=== PATIENT | female | born 1995 | race African-American/Black ===

== ENCOUNTER 2019-02-23 18:56 | Inpatient (IN) | payer OTHER ==
[2019-02-23] MEDS ORDERED: ACETAMINOPHEN 500 MG TABLET (FP) PO ONE (19:06)
--- NOTE | 2019-02-23 19:07 | PDOC ---
Rapid Medical Evaluation Time Seen by Provider: 02/23/19 19:03 Medical Evaluation: Allergies Allergy/AdvReac Type Severity Reaction Status Date / Time Sulfa (Sulfonamide Allergy Mild Hives Verified 09/22/15 14:49 Antibiotics) 02/23/19 19:05 HPI: 15 weeks gravid with Fever since last night associated with mid back pain PE: No gross deficits ORERS: UA and Cx Discharge Disposition - Diagnosis Fever - Referrals - Patient Instructions - Post Discharge Activity
[2019-02-23] MEDS ORDERED: ACETAMINOPHEN 325 MG TABLET (FP) ONE (20:15)
[2019-02-23] MEDS ORDERED: SODIUM CHLORIDE 1,000 ML IV STA (21:05)
[2019-02-23 21:19] LABS: HYALINE CASTS 18 /lpf (0-8); PH,URINE 5.5 (5.0-8.0); URINE APPEARANCE CLEAR; URINE BACTERIA 318.4 /hpf (NEGATIVE); URINE BILIRUBIN NEGATIVE (NEGATIVE); URINE COLOR YELLOW; URINE GLUCOSE (UA) NEGATIVE (NEGATIVE); URINE KETONE NEGATIVE (NEGATIVE); URINE LEUK ESTERASE 2+ (NEGATIVE); URINE NITRITE NEGATIVE (NEGATIVE); URINE PROTEIN NEGATIVE (NEGATIVE); URINE RBC 4 /hpf (0-4); URINE UROBILINOGEN 0.2 mg/dL (0.2-1.0); URINE WBC 36 /hpf (0-5)
--- NOTE | 2019-02-23 21:20 | PDOC ---
History of Present Illness <DavidnnekaAlexander - Last Filed: 02/23/19 22:09> <Ankur Holden - Last Filed: 02/24/19 00:44> - General Chief Complaint: SIRS, Suspected/Possible Stated Complaint: FEVER/PAIN Time Seen by Provider: 02/23/19 19:03 Past History - Past Medical History COPD: No - Psycho Social/Smoking Cessation Hx Smoking History: Never smoked Hx Alcohol Use: No Drug/Substance Use Hx: No Substance Use Type: None <Jose AAlexander - Last Filed: 02/23/19 22:09> <Ankur Holden - Last Filed: 02/24/19 00:44> - Past Medical History Allergies/Adverse Reactions: Allergies Allergy/AdvReac Type Severity Reaction Status Date / Time Sulfa (Sulfonamide Allergy Mild Hives Verified 02/23/19 19:08 Antibiotics) Home Medications: Ambulatory Orders Permethrin 5% Topical Cream [Elimite -] 1 applic TP ONCE #1 tube 09/22/15 *Physical Exam - Vital Signs Last Vital Signs Temp Pulse Resp BP Pulse Ox 100.9 F H 120 H 18 104/67 98 02/23/19 19:06 02/23/19 19:06 02/23/19 19:06 02/23/19 19:06 02/23/19 19:06 <Alexander Naranjo - Last Filed: 02/23/19 22:09> - Vital Signs Last Vital Signs Temp Pulse Resp BP Pulse Ox 98.3 F 80 20 98/47 L 99 02/24/19 00:00 02/24/19 00:00 02/24/19 00:00 02/24/19 00:00 02/24/19 00:00 <Ankur Holden - Last Filed: 02/24/19 00:44> ED Treatment Course - LABORATORY CBC & Chemistry Diagram: 02/23/19 21:55 02/23/19 21:55 - ADDITIONAL ORDERS Additional order review: Laboratory Results 02/23/19 21:05 Urine Color Yellow Urine Appearance Clear Urine pH 5.5 Ur Specific [place] 1.018 Urine Protein Negative Urine Glucose (UA) Negative Urine Ketones Negative Urine Blood Negative Urine Nitrite Negative Urine Bilirubin Negative Urine Urobilinogen 0.2 Ur Leukocyte Esterase 2+ H Urine WBC (Auto) 36 Urine RBC (Auto) 4 Urine Casts (Auto) 18 U Epithel Cells (Auto) 1.0 Urine Bacteria (Auto) 318.4 - Medications Given in the ED: ED Medications Discontinued Medications Generic Name Dose Route Start Last Admin Trade Name Freq PRN Reason Stop Dose Admin Acetaminophen 1,000 mg 02/23/19 19:06 02/23/19 20:19 Tylenol - PO 02/23/19 19:07 1,000 mg ONCE ONE Administration <Alexander Naranjo - Last Filed: 02/23/19 22:09> - LABORATORY CBC & Chemistry Diagram: 02/23/19 21:55 02/23/19 21:55 - ADDITIONAL ORDERS Additional order review: Laboratory Results 02/23/19 02/23/19 21:55 21:05 Sodium 135 L Potassium 3.9 Chloride 102 Carbon Dioxide 23 Anion Gap 10 BUN 7.7 Creatinine 0.6 Est GFR (CKD-EPI)AfAm 148.90 Est GFR (CKD-EPI)NonAf 128.48 Random Glucose 82 Calcium 9.6 Total Bilirubin 0.2 AST 17 ALT 19 Alkaline Phosphatase 74 Total Protein 7.7 Albumin 3.3 L Urine Color Yellow Urine Appearance Clear Urine pH 5.5 Ur Specific [place] 1.018 Urine Protein Negative Urine Glucose (UA) Negative Urine Ketones Negative Urine Blood Negative Urine Nitrite Negative Urine Bilirubin Negative Urine Urobilinogen 0.2 Ur Leukocyte Esterase 2+ H Urine WBC (Auto) 36 Urine RBC (Auto) 4 Urine Casts (Auto) 18 U Epithel Cells (Auto) 1.0 Urine Bacteria (Auto) 318.4 02/23/19 21:55 RBC 3.71 MCV 83.1 MCHC 34.7 RDW 12.7 MPV 7.2 L Neutrophils % 73.4 Lymphocytes % 14.5 Monocytes % 11.0 H Eosinophils % 0.4 Basophils % 0.7 - RADIOLOGY Radiology Studies Ordered: Category Date Time Status KIDNEY / RENAL US [US] Stat Ultrasound 02/23/19 21:04 Completed FOLLOW-UP US [US] Stat Ultrasound 02/23/19 21:04 Completed - Medications Given in the ED: ED Medications Discontinued Medications Generic Name Dose Route Start Last Admin Trade Name Freq PRN Reason Stop Dose Admin Acetaminophen 1,000 mg 02/23/19 19:06 02/23/19 20:19 Tylenol - PO 02/23/19 19:07 1,000 mg ONCE ONE Administration Sodium Chloride 1,000 mls @ 1,000 mls/hr 02/23/19 21:05 02/23/19 22:03 Normal Saline - IV 02/23/19 22:04 1,000 mls/hr ASDIR STA Administration Ceftriaxone Sodium 1,000 mg/ 50 mls @ 100 mls/hr 02/23/19 22:12 02/23/19 22: 25 Dextrose IVPB 02/23/19 22:41 100 mls/hr ONCE ONE Administration <Ankur Holden - Last Filed: 02/24/19 00:44> Medical Decision Making - Medical Decision Making 02/23/19 22:03 23 approx 15wks p/w one day of acute aching 7/10 L flank pain, fever, nausea, chills, +SIRS criteria most concerning for acute pyelonephritis. Acute kidney stone also possible. Plan: CBC CMP 1L IV NS Acetaminophen Blood culture UA Urine culture Ceftriaxone 1g after blood culture draw US Renal US Dispo: Admit 02/23/19 22:09 <Alexander Nraanjo - Last Filed: 02/23/19 22:09> Discharge <Alexander Naranjo - Last Filed: 02/23/19 22:09> - Discharge Information Problems reviewed: Yes - Admission Yes <Ankur Holden - Last Filed: 02/24/19 00:44> - Discharge Information Clinical Impression/Diagnosis: Acute pyelonephritis in second trimester, antepartum Fever Qualifiers: Fever type: unspecified Qualified Code(s): R50.9 - Fever, unspecified Condition: Fair - Follow up/Referral Referrals: Julissa Garcia MD [Primary Care Provider] - - Patient Discharge Instructions - Post Discharge Activity
[2019-02-23 22:09] LABS: BASO % 0.7 % (0-2.0); EOS % 0.4 % (0-4.5); HEMATOCRIT 30.9 % (32.4-45.2); HEMOGLOBIN 10.7 GM/dL (10.7-15.3); LYMPH % 14.5 % (8-40); MCH 28.9 pg (25.7-33.7); MCHC 34.7 g/dl (32.0-36.0); MEAN CELL VOLUME 83.1 fl (80-96); MEAN PLT VOLUME 7.2 fl (7.5-11.1); NEUT % 73.4 % (42.8-82.8); PLATELET COUNT 385 K/MM3 (134-434); RBC 3.71 M/mm3 (3.60-5.2); RDW 12.7 % (11.6-15.6); WHITE BLOOD COUNT 6.9 K/mm3 (4.0-10.0)
[2019-02-23] MEDS ORDERED: CEFTRIAXONE 1,000 MG in DEXTROSE 5%-WATER - 50 ML IVPB ONE (22:12)
--- NOTE | 2019-02-23 22:15 | PDOC ---
Documentation entered by Bennett Harper SCRIBE, acting as scribe for Ankur Holden MD. Ankur Holden MD: This documentation has been prepared by the Leroy connors Xhesika, SCRIBE, under my direction and personally reviewed by me in its entirety. I confirm that the documentation accurately reflects all work, treatment, procedures, and medical decision making performed by me. Attending Attestation - Resident Resident Name: DavidannashleyAlexander - ED Attending Attestation I have performed the following: I have examined & evaluated the patient, The case was reviewed & discussed with the resident, I agree w/resident's findings & plan, Exceptions are as noted - HPI HPI: 02/23/19 21:22 The patient is a 23 year old female, , currently 15 weeks , with no significant PMH, who presents to the emergency department for 1 day of fever and L flank pain. Patient states she endorsed similar symptoms 2 weeks ago, however, today her symptoms were associated with nausea and chills, which prompted her arrival to the ED. Pt denies vaginal bleeding/discharge. The patient denies chest pain, shortness of breath, headache and dizziness. Denies cough, nausea, vomiting, diarrhea and constipation. Denies dysuria, frequency, urgency and hematuria. Allergies: NKDA - Physicial Exam PE: 02/23/19 22:13 Patient is awake and alert, well-nourished, in mild distress; patient's tachycardic and febrile Normocephalic, atraumatic PERRLA, EOMI mm-dry cta rrr, tachycardic Abdomen soft, nondistended, gravid uterus is palpated below the umbilicus, positive left CVA tenderness to palpation - Medical Decision Making 02/23/19 22:14 Patient is a 23-year-old female, 1 para 0, at 15 weeks gestation by LMP presents with signs and symptoms of pyelonephritis with fever, tachycardia and left CVA tenderness. We'll obtain CBC/CMP/UA/urine culture/blood culture. Will hydrate. We'll administer IV antibiotics post blood culture. Will obtain renal and -related ultrasound. Will admit. 02/23/19 23:50 Patient reassessed, resting comfortably. -related ultrasound reveals an IUP at 16 weeks 5 days with FH. Renal ultrasound is within normal limit. Will admit for IV antibiotics.
[2019-02-23] MEDS ORDERED: CEFTRIAXONE 1 GM/50 ML BAG ONE (22:18)
[2019-02-23 22:45] LABS: ALBUMIN 3.3 g/dl (3.4-5.0); BILIRUBIN,TOTAL 0.2 mg/dL (0.2-1); BLOOD UREA NITROGEN 7.7 mg/dL (7-18); CALCIUM 9.6 mg/dL (8.5-10.1); CREATININE 0.6 mg/dL (0.55-1.3); POTASSIUM 3.9 mmol/L (3.5-5.1); TOT PROT 7.7 g/dl (6.4-8.2)
--- NOTE | 2019-02-24 00:57 | HP ---
Admitting History and Physical - Primary Care Physician PCP: Dr. Stewart - Admission Chief Complaint: fever, left back pain History of Present Illness: 23 year old female with no significant PMH, currently 15wks ( 1 para 0, at 15 weeks gestation by LMP) arrived to ED for one day of acute Left flank pain 7/10, fever, Nausea and chills. Patient denies vaginal pain, bleeding. Patient also denies sob/cp, dizziness, headache, vomiting, diarrhea or constipation. History Source: Patient Limitations to Obtaining History: No Limitations - Past Surgical History Additional Past Surgical History: 1 in past - Smoking History Smoking history: Never smoked Have you smoked in the past 12 months: No - Alcohol/Substance Use Hx Alcohol Use: No History of Substance Use: reports: None - Social History ADL: Independent History of Recent Travel: No Home Medications - Allergies Allergies/Adverse Reactions: Allergies Allergy/AdvReac Type Severity Reaction Status Date / Time Sulfa (Sulfonamide Allergy Mild Hives Verified 02/23/19 19:08 Antibiotics) - Home Medications Home Medications: Ambulatory Orders Permethrin 5% Topical Cream [Elimite -] 1 applic TP ONCE #1 tube 09/22/15 Family Medical History Family History: Denies Review of Systems - Review of Systems Constitutional: reports: Fever Eyes: reports: No Symptoms HENT: reports: No Symptoms Neck: reports: No Symptoms Cardiovascular: reports: No Symptoms Respiratory: reports: No Symptoms Gastrointestinal: reports: Nausea Genitourinary: reports: Flank Pain Breasts: reports: No Symptoms Reported Musculoskeletal: reports: No Symptoms Integumentary: reports: No Symptoms Neurological: reports: No Symptoms Endocrine: reports: No Symptoms Hematology/Lymphatic: reports: No Symptoms Psychiatric: reports: No Symptoms Physical Examination Vital Signs: Vital Signs Temperature 98.3 F 02/24/19 00:00 Pulse Rate 80 02/24/19 00:00 Respiratory Rate 20 02/24/19 00:00 Blood Pressure 98/47 L 02/24/19 00:00 O2 Sat by Pulse Oximetry (%) 99 02/24/19 00:00 Constitutional: Yes: No Distress, Calm Eyes: Yes: Conjunctiva Clear, EOM Intact HENT: Yes: Atraumatic, Normocephalic Neck: Yes: Supple, Trachea Midline Cardiovascular: Yes: Regular Rate and Rhythm Respiratory: Yes: Regular, CTA Bilaterally Gastrointestinal: Yes: Normal Bowel Sounds, Soft Renal/: Yes: CVA Tenderness - Left Musculoskeletal: Yes: WNL Extremities: Yes: WNL Edema: No Integumentary: Yes: WNL Neurological: Yes: Alert, Oriented Labs: CBC, BMP 02/23/19 21:55 02/23/19 21:55 Imaging - Results Ultrasound: Report Reviewed (-related ultrasound reveals an IUP at 16 weeks 5 days with FH. Renal ultrasound is within normal limit.) Other: Report Reviewed (UA: 2+ leukocytes pending UCX) Problem List - Problems (1) Acute pyelonephritis in second trimester, antepartum Code(s): O23.02 - INFECTIONS OF KIDNEY IN , SECOND TRIMESTER; N10 - ACUTE PYELONEPHRITIS Assessment/Plan 23 year old female with no significant PMH, currently 15wks ( 1 para 0, at 15 weeks gestation by LMP) arrived to ED for one day of acute Left flank pain 7/10, fever, Nausea and chills. # Acute Pyelonephritis SIRS criteria - noted with fever, tachy, + UA: 2+ leukocytes - -related ultrasound reveals an IUP at 16 weeks 5 days with FH. - Renal ultrasound is within normal limit. - ED gave 1L IV NS, Tylenol po 1000mg and 1 g ceftriaxone - follow up Blood, Urine culture, adjust medication based on sensitivity - continue with Tylenol q 8 hour PRN - follow up OBGYN, and ID in AM Visit type - Emergency Visit Emergency Visit: Yes ED Registration Date: 02/24/19 Care time: The patient presented to the Emergency Department on the above date and was hospitalized for further evaluation of their emergent condition. - New Patient This patient is new to me today: Yes Date on this admission: 02/24/19 - Critical Care Critical Care patient: No
[2019-02-24] MEDS ORDERED: ACETAMINOPHEN 325 MG TABLET (FP) PO PRN (01:07)
[2019-02-24 03:05] VITALS: BMI 25.4
[2019-02-24 07:17] LABS: HEMOGLOBIN 8.7 GM/dL (10.7-15.3); MCH 28.8 pg (25.7-33.7); MCHC 34.8 g/dl (32.0-36.0); MEAN CELL VOLUME 82.7 fl (80-96); MEAN PLT VOLUME 7.5 fl (7.5-11.1); PLATELET COUNT 312 K/MM3 (134-434); RBC 3.03 M/mm3 (3.60-5.2); RDW 12.8 % (11.6-15.6); WHITE BLOOD COUNT 5.7 K/mm3 (4.0-10.0)
[2019-02-24 07:39] LABS: BLOOD UREA NITROGEN 6.4 mg/dL (7-18); CALCIUM 8.3 mg/dL (8.5-10.1); CREATININE 0.5 mg/dL (0.55-1.3); POTASSIUM 3.8 mmol/L (3.5-5.1)
[2019-02-24] MEDS ORDERED: DEXTROSE 5%-WATER - 50 ML IVPB ONE (09:29)
[2019-02-24] MEDS ORDERED: cefTRIAXone SODIUM 1 GM VIAL ONE (09:29)
[2019-02-24] MEDS: CEFTRIAXONE 1 GM in DEXTROSE 5%-WATER - 50 ML IVPB SCH (09:35)
--- NOTE | 2019-02-24 10:05 | CON.OBG ---
Consult Consult Specialty:: [employer] Reason for Consultation:: Fever in - History of Present Illness Chief Complaint: Flank pain with fever History of Present Illness: 23 year old female with no significant PMH, currently 15wks ( 1 para 0, at 15 weeks gestation by LMP) arrived to ED for one day of acute Left flank pain 7/10, fever, Nausea and chills. Patient denies vaginal pain, bleeding. Patient also denies sob/cp, dizziness, headache, vomiting, diarrhea or constipation. OB called for consultation. I came to see patient. She's been followed for obstetrical care at my office. She admits to having fever associated with left flank pain starting yesterday. She was placed on IV antibiotic. She's lying comfortably in bed. - History Source History Provided By: Patient Limitations to Obtaining History: No Limitations - Past Medical History ...: Yes ...: 2 ...Para: 0 - Past Surgical History Past Surgical History: Yes: None - Alcohol/Substance Use Hx Alcohol Use: No History of Substance Use: reports: None - Smoking History Smoking history: Never smoked Have you smoked in the past 12 months: No - Social History ADL: Independent History of Recent Travel: No Home Medications - Allergies Allergies/Adverse Reactions: Allergies Allergy/AdvReac Type Severity Reaction Status Date / Time Sulfa (Sulfonamide Allergy Mild Hives Verified 02/23/19 19:08 Antibiotics) - Home Medications Home Medications: Ambulatory Orders Permethrin 5% Topical Cream [Elimite -] 1 applic TP ONCE #1 tube 09/22/15 Ferrous Sulfate [Iron] 325 mg PO BID 02/24/19 Family Medical History Family History: Unremarkable Review of Systems - Review of Systems Constitutional: reports: No Symptoms Eyes: reports: No Symptoms HENT: reports: No Symptoms Neck: reports: No Symptoms Cardiovascular: reports: No Symptoms Respiratory: reports: No Symptoms Gastrointestinal: denies: Abdominal Pain Genitourinary: reports: Flank Pain. denies: Vaginal Bleeding Breasts: reports: No Symptoms Reported Musculoskeletal: reports: No Symptoms Integumentary: reports: No Symptoms Psychiatric: reports: No Symptoms Pain Intensity: 5 Physical Exam-[employer] Vital Signs: Vital Signs Temperature 98.2 F 02/24/19 02:50 Pulse Rate 91 H 02/24/19 02:50 Respiratory Rate 18 02/24/19 02:50 Blood Pressure 109/60 02/24/19 02:50 O2 Sat by Pulse Oximetry (%) 98 02/24/19 02:50 Constitutional: No: No Distress Eyes: Yes: Conjunctiva Clear HENT: Yes: Atraumatic Neck: Yes: Supple Cardiovascular: Yes: Regular Rate and Rhythm Respiratory: Yes: Regular Gastrointestinal: Yes: Normal Bowel Sounds. No: Tenderness, Epigastrium, Vomiting Pelvis: Yes: WNL External Genitalia: Yes: Normal Vaginal Exam: No: Bleeding Uterus: Yes: Other (Gravid) Breast(s): Yes: WNL Musculoskeletal: Yes: WNL Extremities: Yes: WNL Integumentary: Yes: WNL Neurological: Yes: Alert, Oriented ...Motor Strength: WNL Psychiatric: Yes: Alert, Oriented Labs: CBC, BMP 02/24/19 06:20 02/24/19 06:20 Problem List - Problems (1) 15 weeks gestation of Code(s): Z3A.15 - 15 WEEKS GESTATION OF Assessment/Plan 15 weeks gestation Acute pyelonephritis Continue IV antibiotic for 48 hours Patient may be discharge home with PO Keflex for 14 days. F/U with OB ( Dr. Hernandez ) as scheduled
--- NOTE | 2019-02-24 11:14 | PN ---
Progress Note (short form) - Note Progress Note: has pain in left back no burning in urine has suprapubic pain , left inguinal pain Vital Signs - 24 hr 02/23/19 02/23/19 02/24/19 19:06 22:26 00:00 Temperature 100.9 F H 98.3 F Pulse Rate 120 H Pulse Rate [ 80 Left Radial] Respiratory 18 20 Rate Blood Pressure 104/67 Blood Pressure 98/47 L [Left Arm] O2 Sat by Pulse 98 99 99 Oximetry (%) 02/24/19 02/24/19 02/24/19 02:01 02:50 09:00 Temperature 98.1 F 98.2 F 98.0 F Pulse Rate 91 H 92 H Pulse Rate [ 92 H Left Radial] Respiratory 20 18 20 Rate Blood Pressure 109/60 98/58 L Blood Pressure 100/53 L [Left Arm] O2 Sat by Pulse 98 98 94 L Oximetry (%) Current Medications Generic Name Dose Route Start Last Admin Trade Name Freq PRN Reason Stop Dose Admin Acetaminophen 650 mg 02/24/19 01:07 Tylenol - PO Q8H PRN PAIN OR FEVER Ceftriaxone Sodium 1 gm/ 50 mls @ 100 mls/hr 02/24/19 10:00 02/24/19 09:35 Dextrose IVPB 03/02/19 23:59 100 mls/hr DAILY [facility] Administration Multivitamins/Minerals 1 each 02/25/19 10:00 Theragran-M PO DAILY [facility] Laboratory Results - last 24 hr 02/23/19 02/23/19 02/23/19 21:05 21:55 21:55 WBC 6.9 RBC 3.71 Hgb 10.7 Hct 30.9 L MCV 83.1 MCH 28.9 MCHC 34.7 RDW 12.7 Plt Count 385 MPV 7.2 L Absolute Neuts (auto) 5.1 Neutrophils % 73.4 Lymphocytes % 14.5 Monocytes % 11.0 H Eosinophils % 0.4 Basophils % 0.7 Nucleated RBC % 0 Sodium 135 L Potassium 3.9 Chloride 102 Carbon Dioxide 23 Anion Gap 10 BUN 7.7 Creatinine 0.6 Est GFR (CKD-EPI)AfAm 148.90 Est GFR (CKD-EPI)NonAf 128.48 Random Glucose 82 Calcium 9.6 Total Bilirubin 0.2 AST 17 ALT 19 Alkaline Phosphatase 74 Total Protein 7.7 Albumin 3.3 L Urine Color Yellow Urine Appearance Clear Urine pH 5.5 Ur Specific [place] 1.018 Urine Protein Negative Urine Glucose (UA) Negative Urine Ketones Negative Urine Blood Negative Urine Nitrite Negative Urine Bilirubin Negative Urine Urobilinogen 0.2 Ur Leukocyte Esterase 2+ H Urine WBC (Auto) 36 Urine RBC (Auto) 4 Urine Casts (Auto) 18 U Epithel Cells (Auto) 1.0 Urine Bacteria (Auto) 318.4 02/24/19 02/24/19 06:20 06:20 WBC 5.7 RBC 3.03 L Hgb 8.7 L Hct 25.0 L D MCV 82.7 MCH 28.8 MCHC 34.8 RDW 12.8 Plt Count 312 MPV 7.5 Absolute Neuts (auto) Neutrophils % Lymphocytes % Monocytes % Eosinophils % Basophils % Nucleated RBC % Sodium 136 Potassium 3.8 Chloride 107 Carbon Dioxide 22 Anion Gap 8 BUN 6.4 L Creatinine 0.5 L Est GFR (CKD-EPI)AfAm 158.11 Est GFR (CKD-EPI)NonAf 136.42 Random Glucose 77 Calcium 8.3 L Total Bilirubin AST ALT Alkaline Phosphatase Total Protein Albumin Urine Color Urine Appearance Urine pH Ur Specific [place] Urine Protein Urine Glucose (UA) Urine Ketones Urine Blood Urine Nitrite Urine Bilirubin Urine Urobilinogen Ur Leukocyte Esterase Urine WBC (Auto) Urine RBC (Auto) Urine Casts (Auto) U Epithel Cells (Auto) Urine Bacteria (Auto) S1 S2 RRR Lungs clear Left flank tenderness+ suprapubic tender+,left inguinal tender+ no edema PLAN IV fluids IV Ceftriaxone Cultures pending encourage po liquids Tylenol prn ID eval and OBGYN eval Problem List - Problems (1) Acute pyelonephritis in second trimester, antepartum Code(s): O23.02 - INFECTIONS OF KIDNEY IN , SECOND TRIMESTER; N10 - ACUTE PYELONEPHRITIS (2) Fever Code(s): R50.9 - FEVER, UNSPECIFIED Qualifiers: Fever type: unspecified Qualified Code(s): R50.9 - Fever, unspecified
--- NOTE | 2019-02-24 12:14 | CON.ID ---
Consult - History of Present Illness History of Present Illness: 23 y.o. female with no significant PMH currently 15 wks presents with c /o fever and Lt flank pain x 1 day associated with nausea and chills. States she had a nonspecific fever 2 wks ago and last saw her [employer] 3 days ago and was told she might have a UTI but does not know results of testing. She denies dysuria but states Lt flank pain extends to Lt lower abd region. Denies vomiting /diarrhea/abd pain, SOB/cough, CP or any other specific complaints. In the ER noted to have temp 100.9, tachycardic with U/A suggestive of UTI. Renal sonogram without specific findings. Currently pt is alert, without distress, afebrile. States pain in Lt flank with movement and with deep inhalation (5/10 intensity). She has no other complaints. 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 LENS BLOCKER: No: Alzheimer's, CVA, Dementia, Migraine, Multiple Sclerosis, Peripheral Neuropathy, Parkinson's, Seizure, Syncope, TIA, Vertigo, Other Cardio/Vascular: No: AFIB, Aneurysm, Aortic Insufficiency, Aortic Stenosis, CAD , CHF, Deep Vein Thrombosis, HTN, Hyperlipdemia, IA, Mitral Insufficiency, Mitral Stenosis, Murmur, Pulmonary Hypertension, Other Pulmonary: No: Asthma, Bronchitis, Cancer, COPD, O2 Dependent, Pneumonia, Previously Intubated, Pulmonary Embolus, Pulmonary Fibrosis, Sleep Apnea, Other Gastrointestinal: No: Ascites, Cancer, Constipation, Crohn's Disease, Diverticulitis, Diverticulosis, Esophageal Varices, Gastritis, GERD, GI Bleed, Hemorrhoids, Hiatal Hernia, Inflamatory Bowel Disease, Irritable Bowel Disease, Pancreatitis, Peptic Ulcer Disease, Ulcerative Colitis, Other Hepatobiliary: No: Cirrhosis, Cholelithiasis, Cholecystitis, Choledocholithiasis , Hepatitis A, Hepatitis B, Hepatitis C, Other Renal/: No: Renal Failure, Renal Inusuff, BPH, Cancer, Hematuria, Hemodialysis , Neurogenic Bladder, Renal Calculi, UTI, Other Reproductive: No: Ectopic , Endometriosis, Fibroids, PID, Polycystic Ovary Syndrome, Postmenopausal, Other ...: Yes Heme/Onc: Yes: Anemia Infectious Disease: No: AIDS, C-Diff, Herpes Zoster, HIV, MRSA, STD's, Tuberculosis, VREF, Other Psych: No: Addictions, Anxiety, Bipolar, Depression, Panic, Psychosis, Schizophrenia, Other Musculoskeletal: No: Bursitis, Chronic low back pain, Hemiparesis, Hemiplegia, Osteoarthritis, Paraplegia, Other Rheumatology: No: Fibromyalgia, Gout, Lupus, Rheumatoid Arthritis, Sarcoidosis, Vasculitis, Other ENT: No: Allergic Rhinitis, Sinusitis, Other Endocrine: No: Rj's Disease, [place]'s Disease, Diabetes Insipidus, Diabetes Mellitus, Hyperparathyroidism, Hyperthyroidism, Hypothyroidism, Osteopenia, SIADH, Other Dermatology: No: Basal Cell, Cellulitis, Eczema, Melanoma, Psoriasis, Squamous Cell, Other - Past Surgical History Past Surgical History: Yes: None - Alcohol/Substance Use Hx Alcohol Use: No History of Substance Use: reports: None - Smoking History Smoking history: Never smoked Have you smoked in the past 12 months: No - Social History ADL: Independent History of Recent Travel: No Home Medications - Allergies Allergies/Adverse Reactions: Allergies Allergy/AdvReac Type Severity Reaction Status Date / Time Sulfa (Sulfonamide Allergy Mild Hives Verified 02/23/19 19:08 Antibiotics) - Home Medications Home Medications: Ambulatory Orders Permethrin 5% Topical Cream [Elimite -] 1 applic TP ONCE #1 tube 09/22/15 Ferrous Sulfate [Iron] 325 mg PO BID 02/24/19 Review of Systems - Review of Systems Constitutional: reports: No Symptoms Eyes: reports: No Symptoms HENT: reports: No Symptoms Neck: reports: No Symptoms Cardiovascular: reports: No Symptoms Respiratory: reports: No Symptoms Gastrointestinal: reports: No Symptoms Genitourinary: reports: Flank Pain Breasts: reports: No Symptoms Reported Musculoskeletal: reports: No Symptoms Integumentary: reports: No Symptoms Neurological: reports: No Symptoms Endocrine: reports: No Symptoms Hematology/Lymphatic: reports: No Symptoms Psychiatric: reports: No Symptoms Physical Exam Vital Signs: Vital Signs Temperature 98.0 F 02/24/19 09:00 Pulse Rate 92 H 02/24/19 09:00 Respiratory Rate 20 02/24/19 09:00 Blood Pressure 98/58 L 02/24/19 09:00 O2 Sat by Pulse Oximetry (%) 94 L 02/24/19 09:00 Constitutional: Yes: No Distress, Calm Eyes: Yes: Conjunctiva Clear HENT: Yes: Atraumatic Neck: Yes: Supple Cardiovascular: Yes: Tachycardia Respiratory: Yes: CTA Bilaterally Gastrointestinal: Yes: Normal Bowel Sounds, Soft Renal/: Yes: CVA Tenderness - Left (mild, extending to front of left lower abd ) Musculoskeletal: Yes: WNL Extremities: Yes: WNL Edema: No Integumentary: Yes: WNL Neurological: Yes: Alert, Oriented Psychiatric: Yes: Alert Labs: CBC, BMP 02/24/19 06:20 02/24/19 06:20 Laboratory Tests 02/23/19 02/23/19 02/23/19 21:05 21:55 21:55 WBC 6.9 RBC 3.71 Hgb 10.7 Hct 30.9 L MCV 83.1 MCH 28.9 MCHC 34.7 RDW 12.7 Plt Count 385 MPV 7.2 L Absolute Neuts (auto) 5.1 Neutrophils % 73.4 Lymphocytes % 14.5 Monocytes % 11.0 H Eosinophils % 0.4 Basophils % 0.7 Nucleated RBC % 0 Sodium 135 L Potassium 3.9 Chloride 102 Carbon Dioxide 23 Anion Gap 10 BUN 7.7 Creatinine 0.6 Est GFR (CKD-EPI)AfAm 148.90 Est GFR (CKD-EPI)NonAf 128.48 Random Glucose 82 Calcium 9.6 Total Bilirubin 0.2 AST 17 ALT 19 Alkaline Phosphatase 74 Total Protein 7.7 Albumin 3.3 L Urine Color Yellow Urine Appearance Clear Urine pH 5.[address] [place] 1.018 Urine Protein Negative Urine Glucose (UA) Negative Urine Ketones Negative Urine Blood Negative Urine Nitrite Negative Urine Bilirubin Negative Urine Urobilinogen 0.2 Ur Leukocyte Esterase 2+ H Urine WBC (Auto) 36 Urine RBC (Auto) 4 Urine Casts (Auto) 18 U Epithel Cells (Auto) 1.0 Urine Bacteria (Auto) 318.4 02/24/19 02/24/19 06:20 06:20 WBC 5.7 RBC 3.03 L Hgb 8.7 L Hct 25.0 L D MCV 82.7 MCH 28.8 MCHC 34.8 RDW 12.8 Plt Count 312 MPV 7.5 Absolute Neuts (auto) Neutrophils % Lymphocytes % Monocytes % Eosinophils % Basophils % Nucleated RBC % Sodium 136 Potassium 3.8 Chloride 107 Carbon Dioxide 22 Anion Gap 8 BUN 6.4 L Creatinine 0.5 L Est GFR (CKD-EPI)AfAm 158.11 Est GFR (CKD-EPI)NonAf 136.42 Random Glucose 77 Calcium 8.3 L Total Bilirubin AST ALT Alkaline Phosphatase Total Protein Albumin Urine Color Urine Appearance Urine pH Ur Specific [place] Urine Protein Urine Glucose (UA) Urine Ketones Urine Blood Urine Nitrite Urine Bilirubin Urine Urobilinogen Ur Leukocyte Esterase Urine WBC (Auto) Urine RBC (Auto) Urine Casts (Auto) U Epithel Cells (Auto) Urine Bacteria (Auto) Imaging - Results Ultrasound: Report Reviewed Problem List - Problems (1) Acute pyelonephritis in second trimester, antepartum Code(s): O23.02 - INFECTIONS OF KIDNEY IN , SECOND TRIMESTER; N10 - ACUTE PYELONEPHRITIS (2) Fever Code(s): R50.9 - FEVER, UNSPECIFIED Qualifiers: Fever type: unspecified Qualified Code(s): R50.9 - Fever, unspecified Assessment/Plan 23 y.o. female with no significant PMH currently 15 wks presents with c /o fever and Lt flank pain x 1 day associated with nausea and chills. Fever/ tachycardia in ER. Acute Pyelonephritis 2nd trimester -- continue Ceftriaxone empirically for now -- follow up culture results -- monitor vitals -- Pt is currently stable Will follow up Thank you
[2019-02-24] MEDS ORDERED: ACETAMINOPHEN 1000 MG/100 ML VIAL (NON FORMULARY) IVPB PRN (12:35)
[2019-02-24] MEDS ORDERED: SODIUM CHLORIDE 1,000 ML IV SCH (12:45)
[2019-02-24] MEDS: FERROUS SO4 325 MG TABLET (FP) PO SCH (13:52)
[2019-02-24] MEDS: PRENATAL VITAMINS W/ FOLIC ACID TABLET (FP) PO SCH (15:33)
[2019-02-25 09:16] LABS: HEMATOCRIT 25.9 % (32.4-45.2); MCH 28.5 pg (25.7-33.7); MCHC 34.7 g/dl (32.0-36.0); MEAN CELL VOLUME 82.1 fl (80-96); MEAN PLT VOLUME 7.3 fl (7.5-11.1); PLATELET COUNT 329 K/MM3 (134-434); RBC 3.15 M/mm3 (3.60-5.2); RDW 12.3 % (11.6-15.6); WHITE BLOOD COUNT 4.9 K/mm3 (4.0-10.0)
[2019-02-25] MEDS ORDERED: DEXTROSE 5%-WATER - 50 ML IVPB ONE (09:37)
[2019-02-25] MEDS ORDERED: cefTRIAXone SODIUM 1 GM VIAL ONE (09:37)
[2019-02-25 09:48] LABS: BLOOD UREA NITROGEN 8.1 mg/dL (7-18); CALCIUM 8.6 mg/dL (8.5-10.1); CREATININE 0.4 mg/dL (0.55-1.3)
[2019-02-25] MEDS ORDERED: MULTIVITAMINS THER W-MINERALS COMBO TABLET (FP) PO SCH (10:00)
[2019-02-25] MEDS: CEFTRIAXONE 1 GM in DEXTROSE 5%-WATER - 50 ML IVPB SCH (10:14)
[2019-02-25] MEDS: FERROUS SO4 325 MG TABLET (FP) PO SCH (10:14)
[2019-02-25] MEDS: PRENATAL VITAMINS W/ FOLIC ACID TABLET (FP) PO SCH (10:14)
--- NOTE | 2019-02-25 10:56 | PN ---
Progress Note, Physician History of Present Illness: stable afebrile still with minor flank pain - Current Medication List Current Medications: Active Medications Acetaminophen (Tylenol -) 650 mg PO Q8H PRN PRN Reason: PAIN OR FEVER Last Admin: 02/24/19 21:45 Dose: 650 mg Acetaminophen (Ofirmev Injection -) 1,000 mg IVPB Q6H PRN PRN Reason: MODERATE PAIN Ferrous Sulfate (Feosol -) 325 mg PO DAILY [facility] Last Admin: 02/25/19 10:14 Dose: 325 mg Ceftriaxone Sodium 1 gm/ (Dextrose) 50 mls @ 100 mls/hr IVPB DAILY [facility] Stop: 03/02/19 23:59 Last Admin: 02/25/19 10:14 Dose: 100 mls/hr Multivit/Folic Acid/Iron ( Vitamins (Sjr) -) 1 tab PO DAILY [facility] Last Admin: 02/25/19 10:14 Dose: 1 tab - Objective Vital Signs: Vital Signs Temperature 98.0 F 02/25/19 10:12 Pulse Rate 77 02/25/19 10:12 Respiratory Rate 17 02/25/19 10:12 Blood Pressure 95/49 L 02/25/19 10:12 O2 Sat by Pulse Oximetry (%) 94 L 02/24/19 21:00 Constitutional: Yes: No Distress, Calm Cardiovascular: Yes: Regular Rate and Rhythm Respiratory: Yes: Regular, CTA Bilaterally Gastrointestinal: Yes: Normal Bowel Sounds, Soft Musculoskeletal: Yes: WNL Extremities: Yes: WNL Neurological: Yes: Alert, Oriented Psychiatric: Yes: Alert, Oriented Labs: CBC, BMP 02/25/19 08:35 02/25/19 08:35 Assessment/Plan - Problems (1) Acute pyelonephritis in second trimester, antepartum Code(s): O23.02 - INFECTIONS OF KIDNEY IN , SECOND TRIMESTER; N10 - ACUTE PYELONEPHRITIS (2) Fever Code(s): R50.9 - FEVER, UNSPECIFIED Qualifiers: Fever type: unspecified Qualified Code(s): R50.9 - Fever, unspecified uti Assessment/Plan 23 y.o. female with no significant PMH currently 15 wks presents with c /o fever and Lt flank pain x 1 day associated with nausea and chills. Fever/ tachycardia in ER. Acute Pyelonephritis 2nd trimester uti continue abx await for identification of the bacteria rest as per the team
--- NOTE | 2019-02-25 12:30 | PN ---
Progress Note (short form) - Note Progress Note: pt seen/examined chart reviewed Pt of Dr. Julissa Garcia awake/ comfortable except mild flank pain Vital Signs Temp 98.0 F 02/25/19 10:12 Pulse 77 02/25/19 10:12 Resp 17 02/25/19 10:12 BP 95/49 L 02/25/19 10:12 Pulse Ox 94 L 02/24/19 21:00 Intake & Output 02/24/19 02/25/19 02/25/19 23:59 11:59 23:59 Intake Total 400 150 Output Total 0 Balance 400 150 Weight 155 lb 6.4 oz Intake: IV 0 saline lock 0 Oral 400 150 Output: Emesis 0 Other: Voiding Method Toilet Toilet Bowel Movement No No Weight Measurement Method Built in [facility] Active Medications Acetaminophen (Tylenol -) 650 mg PO Q8H PRN PRN Reason: PAIN OR FEVER Last Admin: 02/24/19 21:45 Dose: 650 mg Acetaminophen (Ofirmev Injection -) 1,000 mg IVPB Q6H PRN PRN Reason: MODERATE PAIN Ferrous Sulfate (Feosol -) 325 mg PO DAILY [facility] Last Admin: 02/25/19 10:14 Dose: 325 mg Ceftriaxone Sodium 1 gm/ (Dextrose) 50 mls @ 100 mls/hr IVPB DAILY [facility] Stop: 03/02/19 23:59 Last Admin: 02/25/19 10:14 Dose: 100 mls/hr Multivit/Folic Acid/Iron ( Vitamins (Sjr) -) 1 tab PO DAILY [facility] Last Admin: 02/25/19 10:14 Dose: 1 tab CBC, BMP 02/25/19 08:35 02/25/19 08:35 u/s kidneys - reviewed Microbiology 02/23/19 21:05 Urine Culture - Preliminary Urine - Urine Clean Catch Lactose Fermenting Neg Bacilli 02/23/19 21:55 Blood Culture - Preliminary Blood - Peripheral Venous NO GROWTH OBTAINED AFTER 24 HOURS, INCUBATION TO CONTINUE FOR 4 DAYS. 02/23/19 21:55 Blood Culture - Preliminary Blood - Peripheral Venous NO GROWTH OBTAINED AFTER 24 HOURS, INCUBATION TO CONTINUE FOR 4 DAYS. Physical Exam S1 S2 RRR Lungs clear Left flank tenderness+ suprapubic tender+-- Mild no edema PLAN IV fluids IV Ceftriaxone Cultures pending encourage po liquids Tylenol prn D/w I/d also today as well as rn will follow Problem List - Problems (1) Acute pyelonephritis in second trimester, antepartum Code(s): O23.02 - INFECTIONS OF KIDNEY IN , SECOND TRIMESTER; N10 - ACUTE PYELONEPHRITIS (2) Fever Code(s): R50.9 - FEVER, UNSPECIFIED Qualifiers: Fever type: unspecified Qualified Code(s): R50.9 - Fever, unspecified
[2019-02-26] MEDS ORDERED: DEXTROSE 5%-WATER - 50 ML IVPB ONE (09:03)
[2019-02-26] MEDS ORDERED: cefTRIAXone SODIUM 1 GM VIAL ONE (09:03)
[2019-02-26] MEDS: PRENATAL VITAMINS W/ FOLIC ACID TABLET (FP) PO SCH (09:06)
[2019-02-26] MEDS: CEFTRIAXONE 1 GM in DEXTROSE 5%-WATER - 50 ML IVPB SCH (09:06)
[2019-02-26] MEDS: FERROUS SO4 325 MG TABLET (FP) PO SCH (09:06)
--- NOTE | 2019-02-26 13:36 | PN ---
Progress Note (short form) - Note Progress Note: has pain in left back no burning in urine dull pain in left side of back has hard stools but she had a bm yesterday Vital Signs - 24 hr 02/25/19 02/25/19 02/25/19 14:53 20:00 21:00 Temperature 97.4 F L 97.6 F Pulse Rate 73 76 Respiratory 18 19 20 Rate Blood Pressure 107/58 L 99/58 L O2 Sat by Pulse 100 Oximetry (%) 02/26/19 02/26/19 02/26/19 07:00 07:39 08:51 Temperature 97.8 F 97.8 F Pulse Rate 73 73 Respiratory 20 14 Rate Blood Pressure 102/47 L 100/60 O2 Sat by Pulse 100 Oximetry (%) Current Medications Generic Name Dose Route Start Last Admin Trade Name Freq PRN Reason Stop Dose Admin Acetaminophen 650 mg 02/24/19 01:07 02/24/19 21:45 Tylenol - PO 650 mg Q8H PRN Administration PAIN OR FEVER Acetaminophen 1,000 mg 02/24/19 12:35 Ofirmev Injection - IVPB Q6H PRN MODERATE PAIN Ferrous Sulfate 325 mg 02/24/19 12:45 02/26/19 09:06 Feosol - PO 325 mg DAILY [facility] Administration Ceftriaxone Sodium 1 gm/ 50 mls @ 100 mls/hr 02/24/19 10:00 02/26/19 09:06 Dextrose IVPB 03/02/19 23:59 100 mls/hr DAILY [facility] Administration Multivit/Folic Acid/Iron 1 tab 02/24/19 12:45 02/26/19 09:06 Vitamins (Sjr) - PO 1 tab DAILY [facility] Administration Microbiology 02/23/19 21:05 Urine Culture - Final Urine - Urine Clean Catch Escherichia Coli 02/23/19 21:55 Blood Culture - Preliminary Blood - Peripheral Venous NO GROWTH OBTAINED AFTER 48 HOURS, INCUBATION TO CONTINUE FOR 3 DAYS. 02/23/19 21:55 Blood Culture - Preliminary Blood - Peripheral Venous NO GROWTH OBTAINED AFTER 48 HOURS, INCUBATION TO CONTINUE FOR 3 DAYS. S1 S2 RRR Lungs clear Left flank tenderness+ suprapubic tender+,left inguinal tender+ no edema PLAN IV fluids dc IV Ceftriaxone Cultures noted encourage po liquids Tylenol prn ID follow up with regards to antibiotics on discharge Problem List - Problems (1) Acute pyelonephritis in second trimester, antepartum Code(s): O23.02 - INFECTIONS OF KIDNEY IN , SECOND TRIMESTER; N10 - ACUTE PYELONEPHRITIS (2) Fever Code(s): R50.9 - FEVER, UNSPECIFIED Qualifiers: Fever type: unspecified Qualified Code(s): R50.9 - Fever, unspecified
--- NOTE | 2019-02-26 18:20 | PN ---
Progress Note, Physician History of Present Illness: Pt is alert and afebrile. Still has some mild pain in Lt flank but decreasing. Fever resolved. No other complaints. - Current Medication List Current Medications: Active Medications Acetaminophen (Tylenol -) 650 mg PO Q8H PRN PRN Reason: PAIN OR FEVER Last Admin: 02/24/19 21:45 Dose: 650 mg Acetaminophen (Ofirmev Injection -) 1,000 mg IVPB Q6H PRN PRN Reason: MODERATE PAIN Ferrous Sulfate (Feosol -) 325 mg PO DAILY [facility] Last Admin: 02/26/19 09:06 Dose: 325 mg Ceftriaxone Sodium 1 gm/ (Dextrose) 50 mls @ 100 mls/hr IVPB DAILY [facility] Stop: 03/02/19 23:59 Last Admin: 02/26/19 09:06 Dose: 100 mls/hr Multivit/Folic Acid/Iron ( Vitamins (Sjr) -) 1 tab PO DAILY [facility] Last Admin: 02/26/19 09:06 Dose: 1 tab - Objective Vital Signs: Vital Signs Temperature 97.8 F 02/26/19 13:48 Pulse Rate 85 02/26/19 13:48 Respiratory Rate 14 02/26/19 07:39 Blood Pressure 111/55 L 02/26/19 13:48 O2 Sat by Pulse Oximetry (%) 100 02/26/19 08:51 Constitutional: Yes: No Distress, Calm Cardiovascular: Yes: Regular Rate and Rhythm Respiratory: Yes: Regular Gastrointestinal: Yes: Normal Bowel Sounds, Soft Genitourinary: Yes: WNL, Musculoskeletal: Yes: WNL Extremities: Yes: WNL Integumentary: Yes: WNL Neurological: Yes: Alert, Oriented Labs: CBC, BMP 02/25/19 08:35 02/25/19 08:35 Microbiology 02/23/19 21:05 Urine - Urine Clean Catch Urine Culture - Final Escherichia Coli 02/23/19 21:55 Blood - Peripheral Venous Blood Culture - Preliminary NO GROWTH OBTAINED AFTER 48 HOURS, INCUBATION TO CONTINUE FOR 3 DAYS. 02/23/19 21:55 Blood - Peripheral Venous Blood Culture - Preliminary NO GROWTH OBTAINED AFTER 48 HOURS, INCUBATION TO CONTINUE FOR 3 DAYS. Problem List - Problems (1) Acute pyelonephritis in second trimester, antepartum Code(s): O23.02 - INFECTIONS OF KIDNEY IN , SECOND TRIMESTER; N10 - ACUTE PYELONEPHRITIS (2) Fever Code(s): R50.9 - FEVER, UNSPECIFIED Qualifiers: Fever type: unspecified Qualified Code(s): R50.9 - Fever, unspecified Assessment/Plan 23 y.o. female with no significant PMH currently 15 wks presents with c /o fever and Lt flank pain x 1 day associated with nausea and chills. Fever/ tachycardia in ER. E. coli UTI / Acute Pyelonephritis 2nd trimester -- Pt is afebrile, with decreasing flank pain -- upon discharge may switch to keflex to complete total 14 days antibiotic course -- monitor vitals -- Pt is currently stable
[2019-02-27] MEDS ORDERED: cefTRIAXone SODIUM 1 GM VIAL ONE (09:24)
[2019-02-27] MEDS ORDERED: DEXTROSE 5%-WATER - 50 ML IVPB ONE (09:24)
[2019-02-27] MEDS: FERROUS SO4 325 MG TABLET (FP) PO SCH (09:43)
[2019-02-27] MEDS: CEFTRIAXONE 1 GM in DEXTROSE 5%-WATER - 50 ML IVPB SCH (09:43)
[2019-02-27] MEDS: PRENATAL VITAMINS W/ FOLIC ACID TABLET (FP) PO SCH (09:43)
--- NOTE | 2019-02-27 10:39 | PN ---
Progress Note (short form) - Note Progress Note: has pain in left back no burning in urine dull pain in left side of back Vital Signs - 24 hr 02/26/19 02/26/19 02/27/19 20:56 21:00 06:45 Temperature 98 F 98.3 F Pulse Rate 70 71 Respiratory 20 20 17 Rate Blood Pressure 120/80 94/51 L O2 Sat by Pulse 100 Oximetry (%) 02/27/19 02/27/19 07:57 08:40 Temperature 98.0 F Pulse Rate 80 Respiratory 16 Rate Blood Pressure 100/60 O2 Sat by Pulse 100 Oximetry (%) Current Medications Generic Name Dose Route Start Last Admin Trade Name Freq PRN Reason Stop Dose Admin Acetaminophen 650 mg 02/24/19 01:07 02/24/19 21:45 Tylenol - PO 650 mg Q8H PRN Administration PAIN OR FEVER Acetaminophen 1,000 mg 02/24/19 12:35 Ofirmev Injection - IVPB Q6H PRN MODERATE PAIN Ferrous Sulfate 325 mg 02/24/19 12:45 02/27/19 09:43 Feosol - PO 325 mg DAILY [facility] Administration Ceftriaxone Sodium 1 gm/ 50 mls @ 100 mls/hr 02/24/19 10:00 02/27/19 09:43 Dextrose IVPB 03/02/19 23:59 100 mls/hr DAILY [facility] Administration Multivit/Folic Acid/Iron 1 tab 02/24/19 12:45 02/27/19 09:43 Vitamins (Sjr) - PO 1 tab DAILY [facility] Administration S1 S2 RRR Lungs clear Left flank tenderness+ less no suprapubic tenderness ,left inguinal tender+ no edema PLAN IV fluids dc IV Ceftriaxone Cultures noted encourage po liquids Tylenol prn renal and bladder sono ordered if unremarkable, may dc home in AM on po Keflex Problem List - Problems (1) Acute pyelonephritis in second trimester, antepartum Code(s): O23.02 - INFECTIONS OF KIDNEY IN , SECOND TRIMESTER; N10 - ACUTE PYELONEPHRITIS (2) Fever Code(s): R50.9 - FEVER, UNSPECIFIED Qualifiers: Fever type: unspecified Qualified Code(s): R50.9 - Fever, unspecified
--- NOTE | 2019-02-27 16:39 | PN ---
Progress Note, Physician History of Present Illness: Pt feeling well. Denies dysuria. Lt flank pain resolved. Some discomfort in LLQ but no other specific complaints. Bladder sonogram without acute findings. Tolerating antibiotics. - Current Medication List Current Medications: Active Medications Acetaminophen (Tylenol -) 650 mg PO Q8H PRN PRN Reason: PAIN OR FEVER Last Admin: 02/24/19 21:45 Dose: 650 mg Acetaminophen (Ofirmev Injection -) 1,000 mg IVPB Q6H PRN PRN Reason: MODERATE PAIN Ferrous Sulfate (Feosol -) 325 mg PO DAILY [facility] Last Admin: 02/27/19 09:43 Dose: 325 mg Ceftriaxone Sodium 1 gm/ (Dextrose) 50 mls @ 100 mls/hr IVPB DAILY [facility] Stop: 03/02/19 23:59 Last Admin: 02/27/19 09:43 Dose: 100 mls/hr Multivit/Folic Acid/Iron ( Vitamins (Sjr) -) 1 tab PO DAILY [facility] Last Admin: 02/27/19 09:43 Dose: 1 tab - Objective Vital Signs: Vital Signs Temperature 98.0 F 02/27/19 07:57 Pulse Rate 80 02/27/19 07:57 Respiratory Rate 16 02/27/19 07:57 Blood Pressure 100/60 02/27/19 07:57 O2 Sat by Pulse Oximetry (%) 100 02/27/19 08:40 Constitutional: Yes: No Distress, Calm Cardiovascular: Yes: Regular Rate and Rhythm Respiratory: Yes: CTA Bilaterally Gastrointestinal: Yes: Normal Bowel Sounds, Soft Genitourinary: Yes: WNL Musculoskeletal: Yes: WNL Extremities: Yes: WNL Edema: No Integumentary: Yes: WNL Neurological: Yes: Alert, Oriented Labs: CBC, BMP 02/25/19 08:35 02/25/19 08:35 Microbiology 02/23/19 21:55 Blood - Peripheral Venous Blood Culture - Preliminary NO GROWTH OBTAINED AFTER 72 HOURS, INCUBATION TO CONTINUE FOR 2 DAYS. 02/23/19 21:55 Blood - Peripheral Venous Blood Culture - Preliminary NO GROWTH OBTAINED AFTER 72 HOURS, INCUBATION TO CONTINUE FOR 2 DAYS. 02/23/19 21:05 Urine - Urine Clean Catch Urine Culture - Final Escherichia Coli Problem List - Problems (1) Acute pyelonephritis in second trimester, antepartum Code(s): O23.02 - INFECTIONS OF KIDNEY IN , SECOND TRIMESTER; N10 - ACUTE PYELONEPHRITIS (2) Fever Code(s): R50.9 - FEVER, UNSPECIFIED Qualifiers: Fever type: unspecified Qualified Code(s): R50.9 - Fever, unspecified Assessment/Plan 23 y.o. female with no significant PMH currently 15 wks presents with c /o fever and Lt flank pain x 1 day associated with nausea and chills. Fever/ tachycardia in ER. E. coli UTI / Acute Pyelonephritis 2nd trimester -- Pt is afebrile, clinically improving -- upon discharge may switch to keflex to complete total 14 days antibiotic course as discussed -- monitor vitals
[2019-02-28 09:08] VITALS: TEMP 98.2
[2019-02-28 09:11] VITALS: BP 88/57; PULSE 73
[2019-02-28] MEDS ORDERED: cefTRIAXone SODIUM 1 GM VIAL ONE ×2 (09:52→10:41)
[2019-02-28] MEDS ORDERED: PT OWN MED DRAWER 7, Y5N ONE (09:52)
[2019-02-28] MEDS ORDERED: DEXTROSE 5%-WATER - 50 ML IVPB ONE ×2 (09:52→10:41)
[2019-02-28] MEDS: PRENATAL VITAMINS W/ FOLIC ACID TABLET (FP) PO SCH (10:16)
[2019-02-28] MEDS: FERROUS SO4 325 MG TABLET (FP) PO SCH (10:16)
[2019-02-28] MEDS: CEFTRIAXONE 1 GM in DEXTROSE 5%-WATER - 50 ML IVPB SCH (10:17)
--- NOTE | 2019-02-28 10:58 | DS ---
Physical Examination Vital Signs: Vital Signs Temperature 98.2 F 02/28/19 09:07 Pulse Rate 73 02/28/19 09:07 Respiratory Rate 20 02/28/19 09:07 Blood Pressure 88/57 L 02/28/19 09:07 O2 Sat by Pulse Oximetry (%) 100 02/28/19 09:00 Findings/Remarks: feels well. no complains afebrile Constitutional: Yes: No Distress, Calm Eyes: Yes: Conjunctiva Clear Neck: Yes: Supple Cardiovascular: Yes: Regular Rate and Rhythm Respiratory: Yes: CTA Bilaterally Gastrointestinal: Yes: Soft Edema: No Labs: CBC, BMP 02/25/19 08:35 02/25/19 08:35 Discharge Summary Problems reviewed: Yes Reason For Visit: ACUTEPYELONEPHRITIS IN SECOND TRIMESTER,ANTEPARTUM Current Active Problems 15 weeks gestation of (Acute) Acute pyelonephritis in second trimester, antepartum (Acute) Fever (Acute) Hospital Course: 23 y.o. female with no significant PMH currently 15 wks presented with c/o fever and Lt flank pain x 1 day associated with nausea and chills. Fever/tachycardia in ER. E. coli UTI / Acute Pyelonephritis Treated with Abx much better i/d followed d/c on keflex-- total 14 day abx course pt advised to follow with her pmd-- one week OBG f/u as directed Pt in agreement Condition: Improved - Instructions Referrals: Cris Hernandez MD [Staff Physician] - Julissa Garcia MD [Primary Care Provider] - Disposition: HOME - Home Medications Comprehensive Discharge Medication List: Ambulatory Orders Ferrous Sulfate [Iron] 325 mg PO BID 02/24/19 Cephalexin [Keflex] 500 mg PO BID #20 capsule 02/27/19 Vitamins (Sjr) - 1 tab PO DAILY tablet 02/28/19
--- NOTE | 2019-02-28 11:20 | PN ---
Progress Note, Physician History of Present Illness: patient still with some dysuria flank pain resolved doing well patient on admission had flank pain with uti which was pyelo - Current Medication List Current Medications: Active Medications Acetaminophen (Tylenol -) 650 mg PO Q8H PRN PRN Reason: PAIN OR FEVER Last Admin: 02/24/19 21:45 Dose: 650 mg Acetaminophen (Ofirmev Injection -) 1,000 mg IVPB Q6H PRN PRN Reason: MODERATE PAIN Ferrous Sulfate (Feosol -) 325 mg PO DAILY [facility] Last Admin: 02/28/19 10:16 Dose: 325 mg Ceftriaxone Sodium 1 gm/ (Dextrose) 50 mls @ 100 mls/hr IVPB DAILY [facility] Stop: 03/02/19 23:59 Last Admin: 02/28/19 10:17 Dose: 100 mls/hr Multivit/Folic Acid/Iron ( Vitamins ([facility]) -) 1 tab PO DAILY [facility] Last Admin: 02/28/19 10:16 Dose: 1 tab - Objective Vital Signs: Vital Signs Temperature 98.2 F 02/28/19 09:07 Pulse Rate 73 02/28/19 09:07 Respiratory Rate 20 02/28/19 09:07 Blood Pressure 88/57 L 02/28/19 09:07 O2 Sat by Pulse Oximetry (%) 100 02/28/19 09:00 Constitutional: Yes: No Distress, Calm Respiratory: Yes: Regular, CTA Bilaterally Gastrointestinal: Yes: Normal Bowel Sounds, Soft Genitourinary: Yes: WNL Musculoskeletal: Yes: WNL Extremities: Yes: WNL Psychiatric: Yes: Alert, Oriented Labs: CBC, BMP 02/25/19 08:35 02/25/19 08:35 Assessment/Plan - Problems (1) Acute pyelonephritis in second trimester, antepartum Code(s): O23.02 - INFECTIONS OF KIDNEY IN , SECOND TRIMESTER; N10 - ACUTE PYELONEPHRITIS (2) Fever Code(s): R50.9 - FEVER, UNSPECIFIED Qualifiers: Fever type: unspecified Qualified Code(s): R50.9 - Fever, unspecified uti Assessment/Plan 23 y.o. female with no significant PMH currently 15 wks presents with c /o fever and Lt flank pain x 1 day associated with nausea and chills. Fever/ tachycardia in ER. 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
== END 2019-02-28 12:32 | disposition home or self-care (01) | DRG 566 ==
LOC: JER 18:56 → JERBED 02-24 00:44 → J6S 02-24 02:20
PROVIDERS: ADMIT Internal Medicine; ATTEND Internal Medicine
DX: O23.02 Infections of kidney in pregnancy, second trimester (principal); N10 Acute pyelonephritis; R00.0 Tachycardia, unspecified; Z3A.15 15 weeks gestation of pregnancy; O23.42 Unspecified infection of urinary tract in pregnancy, second trimester; R30.0 Dysuria; B96.20 Unspecified Escherichia coli [E. coli] as the cause of diseases classified elsewhere; R50.9 Fever, unspecified
CPT/HCPCS: 36415; 76775-TC; 76816-TC; 76856-TC; 80048; 80053; 81003; 85025; 85027; 87040; 87086; 87186; 99283-25; J7030

== ENCOUNTER 2019-08-05 18:45 | Inpatient (IN) | payer OTHER ==
[2019-08-05] MEDS ORDERED: DEXTROSE 5%-LACTATED RINGERS 1,000 ML IV SCH ×3 (20:00→23:15)
[2019-08-05] MEDS ORDERED: BUTORPHANOL TARTRATE 1 MG/ML VIAL IVPB ONE (23:08)
[2019-08-05] MEDS ORDERED: PROMETHAZINE HCL 25 MG/1 ML VIAL IVPUSH ONE (23:08)
[2019-08-05] MEDS ORDERED: BUTORPHANOL TARTRATE 1 MG/ML VIAL ONE ×2 (23:18)
[2019-08-05 23:19] LABS: BASO % 0.4 % (0-2.0); EOS % 1.6 % (0-4.5); HEMATOCRIT 30.3 % (32.4-45.2); HEMOGLOBIN 10.2 GM/dL (10.7-15.3); LYMPH % 25.3 % (8-40); MCH 29.1 pg (25.7-33.7); MCHC 33.7 g/dl (32.0-36.0); MEAN CELL VOLUME 86.3 fl (80-96); MEAN PLT VOLUME 9.6 fl (7.5-11.1); MONO % 11.3 % (3.8-10.2); NEUT % 61.4 % (42.8-82.8); PLATELET COUNT 214 K/MM3 (134-434); RBC 3.51 M/mm3 (3.60-5.2); RDW 12.2 % (11.6-15.6); WHITE BLOOD COUNT 5.2 K/mm3 (4.0-10.0)
[2019-08-05] MEDS ORDERED: PROMETHAZINE HCL 25 MG/1 ML VIAL ONE (23:20)
[2019-08-05 23:23] LABS: EPI CELLS 7.8 /HPF (0-5/HPF); HYALINE CASTS 20 /lpf (0-8); PH,URINE 7.5 (5.0-8.0); URINE APPEARANCE CLEAR; URINE BACTERIA 94.3 /hpf (NEGATIVE); URINE BILIRUBIN NEGATIVE (NEGATIVE); URINE COLOR YELLOW; URINE GLUCOSE (UA) NEGATIVE (NEGATIVE); URINE KETONE NEGATIVE (NEGATIVE); URINE LEUK ESTERASE NEGATIVE (NEGATIVE); URINE NITRITE NEGATIVE (NEGATIVE); URINE PROTEIN 1+ (NEGATIVE); URINE RBC 2 /hpf (0-4); URINE UROBILINOGEN 0.2 mg/dL (0.2-1.0); URINE WBC 3 /hpf (0-5)
[2019-08-05 23:24] LABS: RETICULOCYTES 1.65 % (0.5-1.5)
[2019-08-05 23:36] LABS: INR 0.94 (0.83-1.09); PROTHROMBIN TIME (PATIENT) 11.1 SEC (9.7-13.0)
[2019-08-05 23:39] LABS: ACTIVATED PTT 28.7 SECONDS (25.2-36.5)
[2019-08-05 23:47] LABS: BLOOD UREA NITROGEN 8.5 mg/dL (7-18); CALCIUM 8.6 mg/dL (8.5-10.1); CREATININE 0.6 mg/dL (0.55-1.3); POTASSIUM 3.9 mmol/L (3.5-5.1); SGOT/AST 18 U/L (15-37)
[2019-08-05 23:52] LABS: URIC ACID 5.2 mg/dL (2.6-7.2)
--- NOTE | 2019-08-05 23:58 | HP ---
Past Medical History - Primary Care Physician PCP:: Mónica León - Admission Chief Complaint: 23 yrs edc 08/18/19 38.1/7 weeks admitted in labor. onset LP since 2.00 PM History of Present Illness: pnc at Dr Hernandez's office . her last visit was on 07/12/19 . she was discontinued care at [facility] , was directed to [address],Pt states she did not get appt there Wt gain 40 lbs Panel 02/11/19 , A Pos , Rpr nr, Hbsag neg, Rubella immune, Sickle trait pos Hiv neg gc/ct neg , pap nilm h/h 10.3/30.8 05/13/19 1 Hr gct 73 07/12/19 GBS neg Sono grams done by M 03/26 -19.4 wks , sliup edc 08/18/19 . 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 No: Hepatitis B Renal/: Yes: Other (none known) ...: 1 ...Para: 0 ... Weeks Gestation by Dates: 38.1 (dates not known edc by sono ) ...EDC by Sono: 08/18/19 (38.1 weeks ) Heme/Onc: Yes: Anemia (pnv & iron) Infectious Disease: No: AIDS, HIV Psych: No: Addictions, Anxiety, Bipolar, Depression, Panic, Psychosis, Schizophrenia, Other Endocrine: No: Diabetes Mellitus, Hyperthyroidism, Hypothyroidism - Past Surgical History Past Surgical History: Yes: None Hx Myomectomy: No Hx Transabdominal Cerclage: No - Smoking History Smoking history: Never smoked Have you smoked in the past 12 months: No - Alcohol/Substance Use Hx Alcohol Use: No History of Substance Use: reports: None - Social History ADL: Independent History of Recent Travel: No Home Medications - Allergies Allergies/Adverse Reactions: Allergies Allergy/AdvReac Type Severity Reaction Status Date / Time Sulfa (Sulfonamide Allergy Mild Hives Verified 02/23/19 19:08 Antibiotics) shellfish derived Allergy Hives Verified 08/05/19 20:22 - Home Medications Home Medications: Ambulatory Orders Ferrous Sulfate [Iron] 325 mg PO BID 02/24/19 Vitamins (Sjr) - 1 tab PO DAILY tablet 02/28/19 Physical Exam - Maternity Vital Signs: Selected Entries 08/05/19 08/06/19 20:26 00:00 Temperature 98.7 F Pulse Rate 65 64 Blood Pressure 142/85 131/75 Weight 190 lb Constitutional: Yes: Severe Distress Eyes: Yes: WNL HENT: Yes: WNL, Normocephalic Neck: Yes: WNL Cardiovascular: Yes: WNL, Regular Rate and Rhythm Lungs: Clear to auscultation Breast(s): Yes: WNL - Abdominal Exam/OB Fundal Height: 38 Number of Fetuses: Single Presentation: Vertex Contractions: Yes Regularity: Regular (3-5 min) Intensity: Mod/Strong Monitor Mode: External Heart Rate (range): 140 Heart Rate Location: [facility] Category: I Accelerations: Uniform Decelerations: None - Vaginal Exam/OB Vaginal Bleediing: No Dilatation (cm): 5 Effacement (%): 80 Amniotic Membrane Status: Bulging Presentation: Vertex/Position Station: -2 - Physical Exam Musculoskeletal: Yes: WNL Extremities: Yes: WNL. No: Calf Tenderness Edema: LLE: 1+, RLE: 1+ Integumentary: Yes: Tattoos Deep Tendon Reflex Grade: Normal +2 ...Motor Strength: WNL Psychiatric: Yes: WNL, Alert, Oriented - Labs Lab Results: CBC, BMP 08/05/19 23:00 08/05/19 23:00 Laboratory Tests 08/05/19 23:00 Blood Type O POSITIVE Antibody Screen Negative Laboratory Tests 08/05/19 08/05/19 08/05/19 23:00 23:00 23:00 PT with INR 11.10 INR 0.94 PTT (Actin FS) 28.7 Uric Acid 5.2 GGT 20 AST 18 ALT 16 Urine Protein U Random Total Protein Urine Creatinine Protein/Creatinin Ratio HIV Ag/Ab Combo Qual 08/05/19 08/05/19 08/05/19 23:00 23:00 23:00 PT with INR INR PTT (Actin FS) Uric Acid GGT AST ALT Urine Protein 1+ H U Random Total Protein 32.4 H Urine Creatinine 39.0 Protein/Creatinin Ratio 0.8 HIV Ag/Ab Combo Qual Negative Problem List - Problems (1) with 38 completed weeks gestation Code(s): Z3A.38 - 38 WEEKS GESTATION OF (2) Labor established Code(s): EQR1074 - Assessment/Plan 2 yrs 38.1 weeks , pnc at PMD 's office , gbs neg plan Trial vag delivey declined epidural labor analgesia stadol2 mg + phenrgan 25 mg iv stat
[2019-08-06 00:15] LABS: GAMMA GLUTAMYL TRANSPEPTIDASE 20 U/L (5-85)
--- NOTE | 2019-08-06 01:17 | PN ---
Progress Note, Labor Vaginal Exam #1 Labor Exam Date: 08/06/19 Labor Exam Time: 01:00 Heart Rate (range): 140 Dilatation: 6 Effacement (%): 80 Amniotic Membrane Status: Ruptured (AROM clear) Presentation: Vertex/Position Station: -2 Remarks: 08/05/19 11.20 PM stadol 2 mg + phenrgan 25 mg iv stat given uc irregular mid tp moderate 4-5 min . FHR 140-150 reactive, cat-1 By the side of head , rt side laterally vaginal soft bulge is felt that can be compressed , possible lateral vaginal wall cyst extending below cervix 1.00 AM 6 cm/80 %/AROM / clear / pelvis adequate Plan ;continue trial of labor pitocin augmentation , Vaginal Exam #2 Labor Exam Date: 08/06/19 Labor Exam Time: 04:15 Heart Rate (range): 150 Dilatation: 10 Effacement (%): 100 Amniotic Membrane Status: Ruptured Presentation: Vertex/Position Station: +2 Remarks: fhr cat-1 uc 2 min 3.10 AM stadol1 mg +phenrgan 25 mg iv stat given Selected Entries 08/06/19 08/06/19 08/06/19 01:00 02:00 03:00 Temperature 97.9 F 98.6 F 98.5 F Pulse Rate 77 Blood Pressure 151/92 149/91 08/06/19 04:00 Temperature 98.5 F Pulse Rate 96 H Blood Pressure 158/94
[2019-08-06] MEDS ORDERED: OXYTOCIN 30 UNITS in 0.9% NS 30 UNIT/500 ML INFUS.BAG IVPB SCH (01:30)
[2019-08-06 02:39] VITALS: BMI 30.7
[2019-08-06] MEDS ORDERED: BUTORPHANOL TARTRATE 1 MG/ML VIAL IVPB ONE (03:05)
[2019-08-06] MEDS ORDERED: PROMETHAZINE HCL 25 MG/1 ML VIAL IVPB ONE (03:05)
[2019-08-06] MEDS ORDERED: PROMETHAZINE HCL 25 MG/1 ML VIAL ONE (03:11)
[2019-08-06] MEDS ORDERED: BUTORPHANOL TARTRATE 1 MG/ML VIAL ONE (03:11)
[2019-08-06] MEDS ORDERED: OXYTOCIN 20 UNITS in 0.9% NS 20 UNIT/1,000 ML INFUS.BAG IV ONE ×2 (03:55→06:11)
[2019-08-06] MEDS ORDERED: oxyCODONE HCL 5 MG TABLET PO PRN (05:29)
[2019-08-06] MEDS ORDERED: BISACODYL 10 MG SUPP.RECT RC PRN (05:29)
[2019-08-06] MEDS ORDERED: BENZOCAINE 20% 57 GM BOTTLE TP PRN (05:29)
[2019-08-06] MEDS ORDERED: WITCH HAZEL 50% (TUCKS) 40 PAD/JAR PAD TP PRN (05:29)
[2019-08-06] MEDS ORDERED: BENZOCAINE 28 GM HEMORRHOIDAL OINTMENT TP PRN (05:29)
[2019-08-06] MEDS ORDERED: METHYLERGONOVINE MALEATE 0.2 MG/1 ML AMP IM PRN (05:29)
[2019-08-06] MEDS ORDERED: OXYTOCIN 20 UNITS in 0.9% NS 20 UNIT/1,000 ML INFUS.BAG IV SCH (05:30)
--- NOTE | 2019-08-06 05:47 | PN ---
Delivery - Delivery Vaginal Delivery: No Problems, Spontaneous (vaginal delivey, vx presentation , CRISTHIAN, cord around neckx1 untangled before delivery of shoulders, mouth & nose suction was done at perineum , shoulders delievered without difficulty . trivascular cord. cord blood collected . Placenta & membranes delievered completely. meu done. 1st degree laceration was noted on Rt side lateral vagina wall near in lower part, left side vaginal laceration in upper lat vag wall . 1cm laceration above urethral meatus . local anesthesia given & rt laceration sutured with chr catgut #2/0. lt & upper laceration sutured with 3/o vicryl with catheter in bladder. EBL 300 ml. out put 300 ml urine . MI exam mucosa & sphincter intact) Type of Anesthesia: Local Episiotomy/Laceration: Vaginal Extension/lac (rt lateral & lt lateral), 1st degree Delivery, Single - Stages of Labor Date 1st Stage Initiatied: 08/05/19 Time 1st Stage Initiated: 18:00 Date 2nd Stage Initiated: 08/06/19 Time 2nd Stage Initiated: 04:15 Date of Delivery: 08/06/19 Time of Delivery: 04:25 Date Placenta Delivered: 08/06/19 Time Placenta Delivered: 04:30 Placenta: Yes: Spontaneous, Uterine Exploration - Condition of Infant Math And Science Instructor/Info Specialist Present: No Infant Gender: Male Weight: 8 lb 1.5 oz Position: Left, OA (around neck) Total Hours ROM (Hrs/Mins): 3hrs ,30 min - 1 Minute Total Score: 8 5 Minutes Total Score: 9 - Mal[place] Feeding Plan Initial Plan: Elected not to breastfeed exclusively throughout hospitalization Remarks - Remarks Remarks: 23 yrs 38.1 weeks gestation pnc at Dr Hernandez's office . gbs neg intrapartum 2 doses of stadol + phenrgan were given intrapartum course uneventful except Labile HTN , HEELP work UP neg
[2019-08-06] MEDS: LABETALOL HCL 200 MG TABLET (FP) PO PRN (08:10)
[2019-08-06] MEDS ORDERED: LABETALOL HCL 200 MG TABLET (FP) ONE (08:15)
[2019-08-06] MEDS ORDERED: IBUPROFEN 600 MG TABLET (FP) PO ONE (08:22)
[2019-08-06] MEDS ORDERED: ACETAMINOPHEN 325 MG TABLET (FP) ONE (08:22)
[2019-08-06] MEDS: ACETAMINOPHEN 325 MG TABLET (FP) PO PRN ×3 (08:25→20:34)
[2019-08-06] MEDS: IBUPROFEN 600 MG TABLET (FP) PO PRN ×3 (08:25→20:34)
[2019-08-06] MEDS: PRENATAL VITAMINS W/ FOLIC ACID TABLET (FP) PO SCH (09:38)
[2019-08-06] MEDS: FERROUS SO4 325 MG TABLET (FP) PO SCH ×2 (09:38→17:24)
[2019-08-07 07:29] LABS: BASO % 0.3 % (0-2.0); EOS % 2.4 % (0-4.5); HEMATOCRIT 24.6 % (32.4-45.2); HEMOGLOBIN 8.5 GM/dL (10.7-15.3); LYMPH % 26.1 % (8-40); MCH 29.8 pg (25.7-33.7); MCHC 34.6 g/dl (32.0-36.0); MEAN CELL VOLUME 86.3 fl (80-96); MEAN PLT VOLUME 9.3 fl (7.5-11.1); MONO % 10.4 % (3.8-10.2); NEUT % 60.8 % (42.8-82.8); PLATELET COUNT 199 K/MM3 (134-434); RBC 2.86 M/mm3 (3.60-5.2); RDW 12.7 % (11.6-15.6); WHITE BLOOD COUNT 7.7 K/mm3 (4.0-10.0)
--- NOTE | 2019-08-07 08:41 | PN ---
Post Progress Note - Subjective Subjective: no complains , perineal soreness less no c/o dizziness. no c/o headache Post Day: 1 Type of Delivery: Vital Signs: Vital Signs Temperature 98.2 F 08/07/19 01:09 Pulse Rate 78 08/07/19 01:09 Respiratory Rate 20 08/07/19 01:09 Blood Pressure 125/58 L 08/07/19 01:09 O2 Sat by Pulse Oximetry (%) 98 08/06/19 06:05 Breast Exam: Yes: Soft, Other (BF). No: Engorged Uterus: Yes: Fundus Firm, Fundus below umbilicus, Non-tender Lochia: Yes: Rubra Lochia, amount: Moderate Extremities: Yes: Calves non-tender, Edema Perineum: Yes: Episiotomy (healing ) Activity: Ambulating - Labs Labs: CBC WBC 7.7 K/mm3 (4.0-10.0) 08/07/19 06:55 RBC 2.86 M/mm3 (3.60-5.2) L 08/07/19 06:55 Hgb 8.5 GM/dL (10.7-15.3) L 08/07/19 06:55 Hct 24.6 % (32.4-45.2) L D 08/07/19 06:55 MCV 86.3 fl (80-96) 08/07/19 06:55 MCH 29.8 pg (25.7-33.7) 08/07/19 06:55 MCHC 34.6 g/dl (32.0-36.0) 08/07/19 06:55 RDW 12.7 % (11.6-15.6) 08/07/19 06:55 Plt Count 199 K/MM3 (134-434) 08/07/19 06:55 MPV 9.3 fl (7.5-11.1) 08/07/19 06:55 Absolute Neuts (auto) 4.7 K/mm3 (1.5-8.0) 08/07/19 06:55 Neutrophils % 60.8 % (42.8-82.8) 08/07/19 06:55 Lymphocytes % 26.1 % (8-40) 08/07/19 06:55 Monocytes % 10.4 % (3.8-10.2) H 08/07/19 06:55 Eosinophils % 2.4 % (0-4.5) 08/07/19 06:55 Basophils % 0.3 % (0-2.0) 08/07/19 06:55 Nucleated RBC % 0 % (0-0) 08/07/19 06:55 Retic Count 1.65 % (0.5-1.5) H 08/05/19 23:00 Problem List - Problems (1) with 38 completed weeks gestation Code(s): Z3A.38 - 38 WEEKS GESTATION OF (2) Labor established Code(s): QJQ3002 - (3) Labile hypertension Code(s): R09.89 - OTH SYMPTOMS AND SIGNS INVOLVING THE CIRC AND RESP SYSTEMS (4) (normal spontaneous vaginal delivery) Code(s): O80 - ENCOUNTER FOR FULL-TERM UNCOMPLICATED DELIVERY (5) Anemia Code(s): D64.9 - ANEMIA, UNSPECIFIED Qualifiers: Anemia type: iron deficiency (6) care and examination of lactating mother Code(s): Z39.1 - ENCOUNTER FOR CARE AND EXAMINATION OF LACTATING MOTHER Assessment/Plan post ,anemia ,stable no symptomatic. pt reqd only once labetalol . labile hypertension plan ct pp care anemia counselled
[2019-08-07] MEDS: FERROUS SO4 325 MG TABLET (FP) PO SCH ×2 (09:20→17:29)
[2019-08-07] MEDS: PRENATAL VITAMINS W/ FOLIC ACID TABLET (FP) PO SCH (09:20)
[2019-08-07] MEDS: IBUPROFEN 600 MG TABLET (FP) PO PRN ×2 (12:59→19:09)
[2019-08-07] MEDS: ACETAMINOPHEN 325 MG TABLET (FP) PO PRN ×2 (13:00→19:10)
[2019-08-07] MEDS ORDERED: SENNOSIDES/DOCUSATE COMBO (SENNA PLUS) TABLET (UD) PO PRN (22:00)
[2019-08-08] MEDS: ACETAMINOPHEN 325 MG TABLET (FP) PO PRN (02:54)
[2019-08-08] MEDS: IBUPROFEN 600 MG TABLET (FP) PO PRN (02:54)
--- NOTE | 2019-08-08 09:18 | DS ---
Physical Exam-CERTIFIED SCRUM MASTER Vital Signs: Vital Signs Temperature 98.5 F 08/08/19 06:00 Pulse Rate 71 08/08/19 06:00 Respiratory Rate 20 08/08/19 06:00 Blood Pressure 137/77 08/08/19 06:00 O2 Sat by Pulse Oximetry (%) 98 08/07/19 21:00 Constitutional: Yes: Well Nourished, Pallor, Other (no c/o dizzinessor headache) Eyes: Yes: WNL HENT: Yes: WNL Neck: Yes: WNL Cardiovascular: Yes: WNL, Other (labile hypertension. she required po labetalol 200 mg only once. HELLP work up neg) Respiratory: Yes: WNL Gastrointestinal: Yes: WNL ...Rectal Exam: Yes: WNL Renal/: Yes: WNL, Other (voiding without difficulty) ....Post : Yes: Uterus firm, Uterus non-tender, Moderate lochia rubra (perinum laceration healing . perineal soreness less) Breast(s): Yes: WNL (breast not engorged) Musculoskeletal: Yes: WNL Extremities: Yes: WNL. No: Calf Tenderness Edema: LLE: 1+, RLE: 1+ Integumentary: Yes: WNL, Tattoos Neurological: Yes: WNL ...Motor Strength: WNL, LUE Psychiatric: Yes: WNL, Alert, Oriented Labs: CBC, BMP 08/07/19 06:55 08/05/19 23:00 Delivery - Delivery Vaginal Delivery: No Problems, Spontaneous (vaginal delivey, vx presentation , CRISTHIAN, cord around neckx1 untangled before delivery of shoulders, mouth & nose suction was done at perineum , shoulders delievered without difficulty . trivascular cord. cord blood collected . Placenta & membranes delievered completely. meu done. 1st degree laceration was noted on Rt side lateral vagina wall near in lower part, left side vaginal laceration in upper lat vag wall . 1cm laceration above urethral meatus . local anesthesia given & rt laceration sutured with chr catgut #2/0. lt & upper laceration sutured with 3/o vicryl with catheter in bladder. EBL 300 ml. out put 300 ml urine . NM exam mucosa & sphincter intact) Type of Anesthesia: Local Episiotomy/Laceration: Vaginal Extension/lac (rt lateral & lt lateral), 1st degree EBL (cc): 300 Delivery, Single - Stages of Labor Date 1st Stage Initiatied: 08/05/19 Time 1st Stage Initiated: 18:00 Date 2nd Stage Initiated: 08/06/19 Time 2nd Stage Initiated: 04:15 Date of Delivery: 08/06/19 Time of Delivery: 04:25 Time Placenta Delivered: 04:30 Placenta: Yes: Spontaneous, Uterine Exploration - Condition of Infant Tower Climber/Associate Professor Of Criminal Justice Present: No Infant Gender: Male Weight: 8 lb 1.5 oz Position: Left, OA (around neck) Total Hours ROM (Hrs/Mins): 3hrs ,30 min - 1 Minute Total Score: 8 5 Minutes Total Score: 9 - [place] Feeding Plan Initial Plan: Elected not to breastfeed exclusively throughout hospitalization Remarks - Remarks Remarks: 23 yrs 38.1 weeks gestation pnc at Dr Hernandez's office . gbs neg intrapartum 2 doses of stadol + phenrgan were given intrapartum course uneventful except Labile HTN , HEELP work UP neg PP course uneventful Anemia counselled discharge today Discharge Summary Problems reviewed: Yes Reason For Visit: LABOR ADMIT Current Active Problems Anemia (Acute) Labile hypertension (Acute) Labor established (Acute) (normal spontaneous vaginal delivery) (Acute) care and examination of lactating mother (Acute) with 38 completed weeks gestation (Acute) Hospital Course: uneventful Plan of Treatment: as directed Goals: anemia correction breast feeding continue maternal & well being Condition: Stable - Instructions Diet, Activity, Other Instructions: Post Instructions DIET: Continue good diet high in protein, calcium, and iron rich foods. Drink at least eight (8) glasses of water daily in addition to other fluids. ___ Regular diet MEDICATIONS: Continue vitamins and iron as previously directed. Motrin and Tylenol may be taken for minor discomfort. ACTIVITY: Mild to moderate exercise may be started in two (2) weeks. Take frequent rest periods. Resume normal activity after six (6) week check up. WOUND CARE OF OPERATIVE SITE: Continue use of perineal bottle until vaginal discharge stops. Keep area clean. Shower daily. Keep abdominal wound dry. Report any drainage or redness to physician. Tub baths, tampons and douches are not permitted for [address] Breast feeding & or _ Bottle feeding BREAST CARE: (For those that are not ): If engorgement occurs: Wear tight fitting bra. Take Tylenol or Motrin for pain. Apply cold packs (ice in bags to each breast ) FAMILY PLANNING: There are many control alternatives to pursue and they should be discussed at your first office visit. You may resume sexual activity after your six (6) week check up. (Remember, is not a contraceptive) NEXT PHYSICIAN APPOINTMENT: Be certain to call for a two (2) week appointment, unless otherwise directed. [phone] , call for appt . BP check up Call Clinic or got to Emergency Dept if you have any of the following: Heavy vaginal bleeding Painful urination Leg pain Unusual odor noted to vaginal bleeding High fever Red streaking noted on breast Referrals: Mónica León MD [Staff Physician] - Disposition: HOME - Home Medications Comprehensive Discharge Medication List: Ambulatory Orders Ferrous Sulfate [Iron] 325 mg PO BID 02/24/19 Vitamins (Sjr) - 1 tab PO DAILY tablet 02/28/19 Acetaminophen [Tylenol .Regular Strength -] 650 mg PO Q3H PRN tablet 08/07/19 Benzocaine [Americaine 20% [place] -] 1 spray TP PRN PRN #0 bottle 08/07/19 Ferrous Sulfate [Feosol] 325 mg PO BIDWM #60 tab 08/07/19 Ibuprofen [Motrin -] 200 mg PO Q4H PRN tablet 08/07/19 Vitamins (Sjr) - 1 tab PO DAILY #30 tablet 08/07/19 Witch Daniella 50% (Tucks) [Tucks Pads -] 1 pad TP PRN PRN pad 08/07/19
[2019-08-08] MEDS: FERROUS SO4 325 MG TABLET (FP) PO SCH (09:46)
[2019-08-08] MEDS: PRENATAL VITAMINS W/ FOLIC ACID TABLET (FP) PO SCH (09:47)
[2019-08-08] MEDS: LABETALOL HCL 200 MG TABLET (FP) PO PRN (10:40)
[2019-08-08 11:08] VITALS: PULSE 78; TEMP 97.6
[2019-08-08 11:18] VITALS: BP 148/95
== END 2019-08-08 15:00 | disposition home or self-care (01) | DRG 560 ==
LOC: JDEL 18:45 → JLDR 21:55 → J3W 08-06 08:30
PROVIDERS: ADMIT Obstetrics & Gynecology; ATTEND Obstetrics & Gynecology
PROC: 0HQ9XZZ Repair Perineum Skin, External Approach (ICD-10-PCS; principal; 2019-08-06)
PROC: 10E0XZZ Delivery of Products of Conception, External Approach (ICD-10-PCS; 2019-08-06)
DX: O69.81X0 Labor and delivery complicated by cord around neck, without compression, not applicable or unspecified (principal); O70.0 First degree perineal laceration during delivery; O90.81 Anemia of the puerperium; Z3A.38 38 weeks gestation of pregnancy; Z37.0 Single live birth
CPT/HCPCS: 36415; 59409; 80048; 81003; 82570; 82977; 83010; 84156; 84450; 84460; 84550; 85025; 85032; 85044; 85610; 85730; 86593; 86850; 86900; 86901; 87389

== ENCOUNTER 2022-08-07 12:28 | Emergency (ER) | payer OTHER ==
[2022-08-07 12:41] VITALS: BP 120/73; PULSE 93; RESP 20; TEMP 98.1; BMI 29.0
[2022-08-07] MEDS ORDERED: SODIUM CHLORIDE 1,000 ML IV STA (14:13)
[2022-08-07 15:29] LABS: BASO % 0.3 % (0-2.0); EOS % 3.7 % (0-4.5); HEMATOCRIT 37.7 % (32.4-45.2); HEMOGLOBIN 12.6 GM/dL (10.7-15.3); LYMPH % 31.5 % (8-40); MCH 27.3 pg (25.7-33.7); MCHC 33.4 g/dl (32.0-36.0); MEAN CELL VOLUME 81.8 fl (80-96); MEAN PLT VOLUME 8.3 fl (7.5-11.1); MONO % 13.8 % (3.8-10.2); NEUT % 50.7 % (42.8-82.8); PLATELET COUNT 425 10^3/uL (134-434); RBC 4.61 M/mm3 (3.60-5.2); RDW 13.1 % (11.6-15.6); WHITE BLOOD COUNT 3.7 K/mm3 (4.0-10.0)
[2022-08-07 16:52] LABS: ALBUMIN 3.6 g/dl (3.4-5.0); ALK PHOS 89 U/L (45-117); ANION GAP 14 MMOL/L (8-16); BILIRUBIN,TOTAL 0.3 mg/dL (0.2-1); BLOOD UREA NITROGEN 11.2 mg/dL (7-18); CALCIUM 8.5 mg/dL (8.5-10.1); CHLORIDE 110 mmol/L (98-107); CO2 12 mmol/L (21-32); CREATININE 0.7 mg/dL (0.55-1.3); LIPASE 113 U/L (73-393); SGOT/AST 38 U/L (15-37); SGPT/ALT 19 U/L (13-61); SODIUM 135 mmol/L (136-145); TOT PROT 7.9 g/dl (6.4-8.2)
[2022-08-07 16:53] LABS: GLUCOSE,RANDOM < 74 mg/dL (74-106)
[2022-08-07 17:04] LABS: PH,URINE 5.5 (5.0-8.0); URINE APPEARANCE CLEAR; URINE BILIRUBIN NEGATIVE (NEGATIVE); URINE COLOR YELLOW; URINE GLUCOSE (UA) NEGATIVE (NEGATIVE); URINE KETONE NEGATIVE (NEGATIVE); URINE LEUK ESTERASE NEGATIVE (NEGATIVE); URINE NITRITE NEGATIVE (NEGATIVE); URINE PROTEIN NEGATIVE (NEGATIVE); URINE UROBILINOGEN 0.2 mg/dL (0.2-1.0)
[2022-08-07 17:05] LABS: HCG,QUALITATIVE URINE Negative
== END 2022-08-07 17:48 | disposition home or self-care (01) ==
LOC: JER 12:28
PROC: 3E0337Z Introduction of Electrolytic and Water Balance Substance into Peripheral Vein, Percutaneous Approach (ICD-10-PCS; principal; 2022-08-07)
DX: K52.9 Noninfective gastroenteritis and colitis, unspecified (principal)
CPT/HCPCS: 36415; 80053; 81003; 82962; 83690; 84703; 85025; 87045; 87046; 87086; 99284-25